=== PATIENT | female | born 1995 | race Caucasian/White ===

== ENCOUNTER 2017-01-25 21:23 | Emergency (ER) | payer OTHER ==
[~2017-01-25] VITALS: Ht 157.5 cm; Wt 91.2 kg
[2017-01-25] MEDS ORDERED: 0.9 % SODIUM CHLORIDE 10 ML DISP.SYRIN. IV PRN (21:45)
[2017-01-25] MEDS ORDERED: HYDROmorphone PF 1 MG/ML DISP.SYRIN IV/SQ PRN (21:45)
[2017-01-25] MEDS ORDERED: IV NORMAL SALINE 1,000ML 1,000 ML IV SCH (22:00)
[2017-01-25] MEDS ORDERED: ONDANSETRON PF 4 MG/2 ML VIAL. IV ONE (22:00)
[2017-01-25] MEDS ORDERED: IOHEXOL 300 MG/ML 75 ML VIAL. IV ONE (22:00)
[2017-01-25] MEDS ORDERED: ONDANSETRON ODT 4 MG TAB.RAPDIS ONE (22:05)
[2017-01-25] MEDS ORDERED: ONDANSETRON ODT 4 MG TAB.RAPDIS PO ONE (22:15)
--- NOTE | 2017-01-25 22:15 | PHYS DOC ---
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 3 days ago she began having crampy periumbilical abdominal pain is gotten progressively worse with subjective fevers and chills with numerous episodes of vomiting and diarrhea not improving with Zofran and [id number] medications. Patient has had subjective fevers and chills with waves of pain that are worse with abdominal wall movements and not improved with bowel movements or vomiting. 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 She denies any travel outside the country, recent antibiotics, or prior symptoms of this severity. She denies any dizziness, loss of consciousness, chest pain, or other focal neurologic deficits with this particular because of events. She is home alone staying at her parents home. She does not know her last menstrual period as she is on an implantable hormone device the presence her periods. She is a she is sexually active but denies being . Pain presently is in moderate 8 of 10 Review of Systems Review of Systems Constitutional: She has complained of subjective fevers and chills Eyes: Denies change in visual acuity, redness, or eye pain [] HENT: Denies nasal congestion or sore throat [] Respiratory: Denies cough or shortness of breath [] Cardiovascular: No additional information not addressed in HPI [] GI: She is explained that she has abdominal pain. Umbilical area with nausea vomiting and diarrhea nonbilious nonbloody. : Denies dysuria or hematuria [] Musculoskeletal: Denies back pain or joint pain [] Integument: Denies rash or skin lesions [] Neurologic: Denies headache, focal weakness or sensory changes [] Endocrine: Denies polyuria or polydipsia [] Current Medications Current Medications Current Medications Medications (Trade) Dose Ordered Sig/[place] Start Time Stop Time Status Last Admin Dose Admin Hydromorphone HCl (Dilaudid) 1 mg PRN Q15MIN PRN 01/25/17 21:45 01/26/17 21:44 Iohexol (Omnipaque 300 Mg/ml) 75 ml 1X ONCE 01/25/17 22:00 01/25/17 22:01 DC Ondansetron HCl (Zofran Odt) 4 mg STK-MED ONCE 01/25/17 22:05 01/25/17 22:06 DC Ondansetron HCl (Zofran) 4 mg 1X ONCE 01/25/17 22:00 01/25/17 22:01 DC Sodium Chloride (Normal Saline Flush) 10 ml QSHIFT PRN 01/25/17 21:45 Allergies Allergies Allergies Coded Allergies Type Severity Reaction Last Updated Verified No Known Drug Allergies 01/25/17 No Physical Exam Physical Exam Constitutional: Well developed, well nourished, she is obviously uncomfortable but nontoxic in appearance. HENT: Normocephalic, atraumatic, bilateral external ears normal, dry mucous membranes no oral exudates, nose normal. [] Eyes: PERRLA, EOMI, conjunctiva normal, no discharge. [] Neck: Normal range of motion, no tenderness, supple, no stridor. [] Cardiovascular:Heart rate regular rhythm, no murmur [] Lungs & Thorax: Bilateral breath sounds clear to auscultation [] Abdomen: Bowel sounds normal, soft with tenderness in the periumbilical area with no guarding rebound or organomegaly no pulsatile mass. Patient denies any Cantrell's or McBurney's point tenderness palpation. Skin: Warm, dry, no erythema, no rash. Patient is nonicteric with no rash no joint swelling. Back: No tenderness, no CVA tenderness. [] Extremities: No tenderness, no cyanosis, no clubbing, ROM intact, no edema. [] Neurologic: Alert and oriented X 3, normal motor function, normal sensory function, no focal deficits noted. [] Psychologic: Affect normal, judgement normal, mood normal. [] Current Patient Data Lab Results Laboratory Tests Test 01/25/17 21:45 01/25/17 21:57 01/25/17 22:40 Urine Collection Type Unknown Urine Color Yellow Urine Clarity Cloudy Urine pH 5.5 Urine Specific [place] >=1.030 Urine Protein 30 mg/dl (NEG-TRACE) Urine Glucose (UA) Neg mg/dL (NEG) Urine Ketones (Stick) Neg mg/dL (NEG) Urine Blood Mod (NEG) Urine Nitrite Neg (NEG) Urine Bilirubin Neg (NEG) Urine Urobilinogen Dipstick 0.2 mg/dL (0.2 mg/dL) Urine Leukocyte Esterase Trace (NEG) Urine RBC 1-2 /HPF (0-2) Urine WBC 5-10 /HPF (0-4) Urine Squamous Epithelial Cells Few /LPF Urine Amorphous Sediment Present /HPF Urine Bacteria 0 /HPF (0-FEW) POC Urine HCG, Qualitative hcg negative (Negative) White Blood Count 13.2 x10^3/uL (4.0-11.0) H Red Blood Count 4.96 x10^6/uL (3.50-5.40) Hemoglobin 14.2 g/dL (12.0-15.5) Hematocrit 41.9 % (36.0-47.0) Mean Corpuscular Volume 85 fL (79-100) Mean Corpuscular Hemoglobin 29 pg (25-35) Mean Corpuscular Hemoglobin Concent 34 g/dL (31-37) Red Cell Distribution Width 13.9 % (11.5-14.5) Platelet Count 237 x10^3/uL (140-400) Neutrophils (%) (Auto) 75 % (31-73) H Lymphocytes (%) (Auto) 17 % (24-48) L Monocytes (%) (Auto) 5 % (0-9) Eosinophils (%) (Auto) 3 % (0-3) Basophils (%) (Auto) 0 % (0-3) Neutrophils # (Auto) 9.9 x10^3uL (1.8-7.7) H Lymphocytes # (Auto) 2.2 x10^3/uL (1.0-4.8) Monocytes # (Auto) 0.6 x10^3/uL (0.0-1.1) Eosinophils # (Auto) 0.4 x10^3/uL (0.0-0.7) Basophils # (Auto) 0.0 x10^3/uL (0.0-0.2) Sodium Level 138 mmol/L (136-145) Potassium Level 3.5 mmol/L (3.5-5.1) Chloride Level 103 mmol/L (98-107) Carbon Dioxide Level 20 mmol/L (21-32) L Anion Gap 15 (6-14) H Blood Urea Nitrogen 10 mg/dL (7-20) Creatinine 0.8 mg/dL (0.6-1.0) Estimated GFR (Cockcroft-Gault) 91.4 BUN/Creatinine Ratio 13 (6-20) Glucose Level 112 mg/dL (70-99) H Calcium Level 8.8 mg/dL (8.5-10.1) Total Bilirubin 0.3 mg/dL (0.2-1.0) Direct Bilirubin 0.1 mg/dL (0.0-0.2) Aspartate Amino Transferase (AST) 19 U/L (15-37) Alanine Aminotransferase (ALT) 41 U/L (14-59) Alkaline Phosphatase 68 U/L (46-116) Total Protein 7.9 g/dL (6.4-8.2) Albumin 3.9 g/dL (3.4-5.0) Albumin/Globulin Ratio 1.0 (1.0-1.7) Lipase 50 U/L (73-393) L Laboratory Tests Test 01/25/17 21:57 POC Urine HCG, Qualitative hcg negative (Negative) EKG EKG [] Radiology/Procedures Radiology/Procedures [] Impressions: [place] [id number] IMAGING REPORT Signed PATIENT: STACIE HERNANDEZ ACCOUNT: [id number] : 1995 LOCATION: ER AGE: 21 SEX: F EXAM STATUS: REG ER ORD. PHYSICIAN: MARGARITO PARKS MD REASON: Abdominal pain, nausea, vomiting, diarrhea x 3 days PROCEDURE: CT ABDOMEN PELVIS WO CONTRAST CT ABDOMEN PELVIS WO CONTRAST dated 01/25/2017 9:45 PM Clinical indication: Abdominal pain nausea and vomiting diarrhea for 3 days. Comparison: No comparison is available. Technique: Contiguous axial imaging of the abdomen and pelvis performed without the administration of IV or oral contrast. One or more of the following individualized dose reduction techniques were utilized for this examination: 1. Automated exposure control 2. Adjustment of the mA and/or kV according to patient size 3. Use of iterative reconstruction technique Findings: Limited images of lung bases are clear. Heart size within normal limits. No pleural or pericardial effusion. Solid abdominal viscera not well evaluated in the absence of contrast material. No apparent attenuation abnormality of the liver or spleen. Pancreas, adrenal glands, gallbladder and kidneys are unremarkable. No stone or hydronephrosis. Unopacified GI tract is normal in caliber. There is fluid-filled small bowel and colon. No focal wall thickening or perienteric inflammatory changes. The appendix is normal in caliber. No ascites or lymphadenopathy. Images of pelvis a nondistended urinary bladder. No calcific bladder stone. Uterus and adnexa are unremarkable. No free fluid or lymphadenopathy. Bone windows show no acute findings. IMPRESSION: 1. No acute abnormality of abdomen or pelvis. No stone or hydronephrosis. 2. Fluid-filled small and large bowel with no focal transition point or mesenteric inflammatory change. This is nonspecific but could represent ileus or enteritis. 3. Normal appendix. Electronically signed by: Bahman White MD (01/25/2017 10:53 PM) DICTATED AND SIGNED BY: BAHMAN WHITE MD DATE: 01/25/17 3666 CC: MARGARITO PARKS MD; TIRSO BASS APRN ~ Course & Med Decision Making Course & Med Decision Making Pertinent Labs and Imaging studies reviewed. (See chart for details) on arrival reviewed patient's history, physical exam findings, an initial vital signs. Patient's abdomen is very tender on the periumbilical area my concern immediately is ectopic versus appendicitis, small bowel section, diverticulitis, ovarian cyst, UTI, pyonephritis, infectious enteritis, gastritis , gastroenteritis, inflammatory bowel disease or possible food poisoning. Plan I will offer patient fluids, antiemetics, pain medications, while we looked at her CMP, complete a CAT scan of her abdomen and pelvis looking for other pathology to be causing her symptoms. 9:55 PM nurses or struggling to place an IV line this patient's arm she is so dehydrated. We elected to treat her with oral Zofran and attempt to help with her nausea. 10:30 PM blood will complete sent for processing. Urinalysis has ordered an process and returned demonstrates increased urine specific gravity likely secondary to volume the patient secondary to nausea and vomiting. Patient's urine test is negative. Time 11:35 PM all blood work returned lipase normal LFTs normal patient's CBC is mildly elevated with a mild left shift. Patient's potassium BUN/creatinine are normal. Patient tolerating by mouth urinated here in the emergency department should increased hydration. Impression. Abdominal pain of unclear etiology scan findings as well as reaction to medications and physical exam, this patient is suffering from a gastroneuritis. Although we cannot prove that this is a virus her nausea vomiting diarrhea can be controlled with supportive medications. Doubt appendicitis at this time. She'll be discharged on antiemetics and pain medications I will ask her to follow-up in the next 12-24 hours for repeat evaluation of her abdominal pain is still persistent. [] Dragon Disclaimer Dragon Disclaimer This chart was dictated in whole or in part using Voice Recognition software in a busy, high-work load, and often noisy Emergency Department environment. It may contain unintended and wholly unrecognized errors or omissions. Departure Departure: Impression: Primary Impression: Nausea and vomiting Additional Impressions: Diarrhea Abdominal pain Disposition: HOME, SELF-CARE Condition: IMPROVED Referrals: TIRSO BASS APRN (PCP) Patient Instructions: Abdominal Pain (Nonspecific), Diarrhea, Diarrhea, Easy-to -Read, Nausea and Vomiting Additional Instructions: Please return for any new or increasing symptoms or if you have any questions or concerns. There is no evidence of appendicitis on her CAT scan at this time but an elevated white count, nausea and vomiting, diarrhea to be an indicator of appendicitis and narcotics mask the symptoms and development abdominal pain in the right lower quadrant. Pain in the right lower quadrant may be a significant indicator of appendicitis. Please return for any fever greater than 103.2 despite treatment or if you've any localized pain in the right lower quadrant despite treatment. I would advise a follow-up your regular doctor next 12-24 hours repeat abdominal exam if your symptoms are persistent without improvement. Scripts Diphenoxylate Hcl/Atropine (LOMOTIL TABLET) 1 Each Tablet 1 TAB PO QID, #20 TAB Prov: MARGARITO PARKS MD 01/25/17 Ondansetron (ZOFRAN ODT) 8 Mg Tab.rapdis 8 MG PO TID for 7 Days Prov: MARGARITO PARKS MD 01/25/17 Hydrocodone Bit/Acetaminophen (HYDROCODONE-APAP 5-325 ) 1 Each Tablet 1-2 TAB PO PRN Q6HRS Y for PAIN, #8 TAB 0 Refills Prov: MARGARITO PARKS MD 01/25/17 Dicyclomine Hcl (BENTYL) 10 Mg Capsule 1 CAP PO TID, #15 CAP.EC Prov: MARGARITO PARKS MD 01/25/17 Problem Qualifiers MARGARITO PARKS MD Jan 25, 2017 22:14
[2017-01-25 22:22] LABS: BACTERIA,URINE 0 /HPF (0-FEW); BILIRUBIN,URINE NEG (NEG); CLARITY,URINE CLOUDY; COLOR,URINE YELLOW; GLUCOSE,URINE NEG (NEG); NITRITE,URINE NEG (NEG); UROBILINOGEN,URINE 0.2 mg/dL (0.2 mg/dL)
[2017-01-25 22:23] LABS: AMORPHOUS SEDIMENT,UR PRESENT /HPF; SQUAMOUS EPITHELIAL CELL,UR FEW /LPF
[2017-01-25 22:49] LABS: BASO % 0 % (0-3); EOS # 0.4 x10^3/uL (0.0-0.7); EOS % 3 % (0-3); HEMATOCRIT 41.9 % (36.0-47.0); HEMOGLOBIN 14.2 g/dL (12.0-15.5); LYMPH # 2.2 x10^3/uL (1.0-4.8); LYMPH % 17 % (24-48); MEAN CORPUSCULAR HEMOGLOBIN 29 pg (25-35); MEAN CORPUSCULAR HGB CONC 34 g/dL (31-37); MEAN CORPUSCULAR VOLUME 85 fL (79-100); MONO # 0.6 x10^3/uL (0.0-1.1); MONO % 5 % (0-9); NEUT # 9.9 x10^3uL (1.8-7.7); NEUT % 75 % (31-73); PLATELET COUNT 237 x10^3/uL (140-400); RED BLOOD COUNT 4.96 x10^6/uL (3.50-5.40); RED CELL DISTRIBUTION WIDTH 13.9 % (11.5-14.5); WHITE BLOOD COUNT 13.2 x10^3/uL (4.0-11.0)
--- NOTE | 2017-01-25 22:57 | RAD ---
CT ABDOMEN PELVIS WO CONTRAST dated 01/25/2017 9:45 PM Clinical indication: Abdominal pain nausea and vomiting diarrhea for 3 days. Comparison: No comparison is available. Technique: Contiguous axial imaging of the abdomen and pelvis performed without the administration of IV or oral contrast. One or more of the following individualized dose reduction techniques were utilized for this examination: 1. Automated exposure control 2. Adjustment of the mA and/or kV according to patient size 3. Use of iterative reconstruction technique Findings: Limited images of lung bases are clear. Heart size within normal limits. No pleural or pericardial effusion. Solid abdominal viscera not well evaluated in the absence of contrast material. No apparent attenuation abnormality of the liver or spleen. Pancreas, adrenal glands, gallbladder and kidneys are unremarkable. No stone or hydronephrosis. Unopacified GI tract is normal in caliber. There is fluid-filled small bowel and colon. No focal wall thickening or perienteric inflammatory changes. The appendix is normal in caliber. No ascites or lymphadenopathy. Images of pelvis a nondistended urinary bladder. No calcific bladder stone. Uterus and adnexa are unremarkable. No free fluid or lymphadenopathy. Bone windows show no acute findings. IMPRESSION: 1. No acute abnormality of abdomen or pelvis. No stone or hydronephrosis. 2. Fluid-filled small and large bowel with no focal transition point or mesenteric inflammatory change. This is nonspecific but could represent ileus or enteritis. 3. Normal appendix. Electronically signed by: Bahman White MD (01/25/2017 10:53 PM)
[2017-01-25 23:01] LABS: ALBUMIN 3.9 g/dL (3.4-5.0); CALCIUM 8.8 mg/dL (8.5-10.1); CREATININE 0.8 mg/dL (0.6-1.0); DIRECT BILIRUBIN 0.1 mg/dL (0.0-0.2); GFR 91.4; POTASSIUM 3.5 mmol/L (3.5-5.1); TOTAL BILIRUBIN 0.3 mg/dL (0.2-1.0); TOTAL PROTEIN 7.9 g/dL (6.4-8.2)
[2017-01-25] MEDS ORDERED: ONDA8TAB12 PO (23:45)
[2017-01-25] MEDS ORDERED: HYDR-2758 PO (23:45)
[2017-01-25] MEDS ORDERED: DICY10CA53 PO (23:45)
[2017-01-25] MEDS ORDERED: DIPH1TAB PO (23:45)
[2017-01-25 23:54] VITALS: BP 146/84
== END 2017-01-25 23:55 | disposition home or self-care (01) ==
LOC: ER 21:23
DX: R11.2 Nausea with vomiting, unspecified (principal); R19.7 Diarrhea, unspecified; R10.33 Periumbilical pain; E86.0 Dehydration
CPT/HCPCS: 36415; 74176; 80053; 81001; 81025; 82248; 83690; 85027; 87086; 96372; 99285; J1170; Q0162